=== PATIENT | female | born 1985 | race Caucasian/White ===

== ENCOUNTER 2023-08-28 17:53 | Observation (INO) | payer MEDICAID, SELFPAY ==
[2023-08-28 17:54] VITALS: BP 115/63; PULSE 86; RESP 14; TEMP 36.6; O2SAT 100; BMI 27.9
--- NOTE | 2023-08-28 18:02 | EX.ED.SAOD ---
HPI History of Present Illness Chief Complaint: Substance Abuse Detail of Chief Complaint: Requesting detox from fentanyl Informant: patient Narrative Narrative: Patient presents to the emergency department requesting detox from fentanyl. Patient states that she last used around 2:30 in the morning. Currently she is having chills and sweats. She had no vomiting. Denies any other illicit drug use. She last detox from fentanyl about 6 months ago but did not finish the program. Patient typically smokes the fentanyl and does not use IV drugs. Patient denies recent illness. [facility] Medical History (Updated 08/28/23 @ 18:29 by Anuja Barahona) ADHD Bipolar 1 disorder Hepatitis C Home Medications clonazepam 0.5 mg tablet 0.5 mg PO Q12H 08/28/23 [History Last Taken Unknown] gabapentin 400 mg capsule (Neurontin) 400 mg PO Q6H 08/28/23 [History Last Taken Unknown] Allergy/AdvReac Type Severity Reaction Status Date / Time No Known Allergies Allergy Verified 08/28/23 17:55 Family History no significant family his Surgical History no surgical history Social History (Updated 08/28/23 @ 18:08 by Anuja Barahona) household members: significant other housing: house Smoking Status: Current every day smoker tobacco type: cigarettes and e-cigarettes ROS ROS ED Review of Systems ROS Unobtainable: other Constitutional Constitutional ED: Reports chills, lethargy and sweats; Denies fever(s) or weight loss Eyes Eyes: Denies blurry vision, change in vision or diplopia ENT ENT ED: Denies rhinorrhea or sore throat Cardiovascular Cardiovascular: Denies chest pain, orthopnea or racing heartbeat Respiratory/Chest Respiratory/Chest: Denies cough, dyspnea, dyspnea on exertion, orthopnea or sputum Gastrointestinal Gastrointestinal: Denies abdominal pain, diarrhea, nausea or vomiting Genitourinary Genitourinary ED: Denies dysuria, hematuria or urinary frequency Musculoskeletal Musculoskeletal: Denies arthralgias, back pain, myalgias or neck pain Integumentary Denies abscess, Abrasions or rash Neurologic Neurologic: Denies headache(s) or weakness Psychiatric Psychiatric: Denies anxiety, depression or suicidal thoughts Endocrine Endocrinology: Denies polydipsia, polyphagia or polyuria Hematologic/Lymphatic Hematologic/Lymphatic: Denies easy bleeding, easy bruising or lymphadenopathy Allergic/Immunologic Allergic/Immunologic ED: Denies mouth swelling, tongue swelling or urticaria EXAM Physical Exam Const Vital Signs: 08/28/23 17:54 Temperature 97.9 F Temperature Source Temporal Pulse Rate 86 Respiratory Rate 14 Blood Pressure 115/63 Blood Pressure Mean 80 Pulse Ox 100 Oxygen Delivery Method Room Air Positive well nourished and well developed General Appearance ED: well developed and NAD HEENT Reports TM's clear and moist mucous membranes normocephalic and atraumatic; Negative for trauma or tenderness Tympanic Membrane ED: Yes TM's clear Eyes PERRL and EOMs intact bilaterally General Eye ED: Negative for pale conjunctiva or scleral icterus Neck no lymphadenopathy, supple and no JVD General: Negative for tenderness Chest Wall inspection of chest normal and palpation of chest normal Chest: Negative for tenderness Resp normal respiratory effort and clear to auscultation bilaterally Effort and Inspection: Negative for respiratory distress or pain with movement Auscultation: Negative for rhonchi, wheezes or diminished lung sounds Cardio regular rate, regular rhythm, S1 normal heart sound, S2 normal heart sound and no murmurs Peripheral Pulses: pulses 2+ throughout GI normal to inspection, nondistended, normoactive bowel sounds, soft to palpation, non-tender, non-distended and no masses Back/Spine no CVA tenderness and no thoracic nor lumbar tenderness Extremity normal to inspection General Extremety ED: Negative for edema General Extremity: Negative for edema Neuro oriented x3, CN's II-XII intact bilaterally, no sensory deficits noted and gait normal Sensorium / Orientation: awake, alert, oriented to person, oriented to place and oriented to time Motor Exam: strength 5/5 throughout and strength abnormal Psych mental status grossly normal Skin no rashes or lesions noted and no wounds MDM MDM MDM Narrative Medical decision making narrative: Patient presents requesting detox from fentanyl. We will send off basic labs as well as a talk screen alcohol level. Case will be discussed with hospitalist to evaluate patient for admission for detox Discharge Plan Dx/Rx/DC Orders Clinical Impression: Opiate abuse, continuous, Admitted to substance misuse detoxification center Disposition Disposition: Acute Care Hospital [facility] Discharge Date/Time: 08/28/23 21:00
--- NOTE | 2023-08-28 18:06 | HP.PCM.HOS_ITS ---
HPI - General General Date of Admission: 08/28/23 Date of Service: 08/28/23 Chief Complaint: acute opioid withdrawal HPI Narrative JOEL LEVIN, is a 38 F with a PMH as outlined who presents via the ED on 08/28/2023 for detox from fentanyl. She usually smokes fentanyl and says her last use was ~ 2:30pm on the day of admission. She complained of chills and increased sweating. She denied any other symptoms. She last went through detox several months ago at [facility]; however she says she signed out AMA at that time. She managed to stay clean for some months until she relapsed. REview of systems was otherwise negative. Vitals in the ED were BP of 115/63, FL of 86,. RR of 14 and temp of 97.9F. She was saturating at 100% on room air. CBC and BMP as well as urine tox were ordered and pending. She is being admitted to be managed for acute opioid withdrawal. [facility] Medical History (Updated 08/28/23 @ 18:29 by Anuja Barahona) ADHD Bipolar 1 disorder Hepatitis C Medical History no medical history Home Medications clonazepam 0.5 mg tablet 0.5 mg PO Q12H 08/28/23 [History Last Taken Unknown] gabapentin 400 mg capsule (Neurontin) 400 mg PO Q6H 08/28/23 [History Last Taken Unknown] Allergy/AdvReac Type Severity Reaction Status Date / Time No Known Allergies Allergy Verified 08/28/23 17:55 Family History no significant family his Surgical History no surgical history Social History (Updated 08/28/23 @ 18:08 by Anuja Barahona) household members: significant other housing: house Smoking Status: Current every day smoker tobacco type: cigarettes and e- cigarettes ROS Review of Systems ROS Unobtainable: Denies due to encephalopathy Constitutional Constitutional: Reports fatigue, malaise and weakness; Denies anorexia, chills or fever(s) Eyes Eyes: Denies change in vision ENT HEENT: Denies dysphagia or headache(s) Cardiovascular Cardiovascular: Denies chest pain, dyspnea on exertion, edema, lightheadedness, orthopnea, palpitations, rapid heart rate or syncope Respiratory/Chest Respiratory/Chest: Denies cough, productive cough, shortness of breath at rest or shortness of breath with exertion Gastrointestinal Gastrointestinal: Denies abdominal pain, constipation, diarrhea, nausea or vomiting Genitourinary Genitourinary: Denies burning urination Musculoskeletal Musculoskeletal: Denies arthralgias Neurologic Neurologic: Denies confusion, disequilibrium, dizziness, focal weakness, headache(s), numbness, seizure-like activity, seizures or syncope Psychiatric Psychiatric: Denies anxiety Endocrine Endocrinology: Denies change in body appearance Hematologic/Lymphatic Hematologic/Lymphatic: Denies anemia Vital Signs Vital Signs Vital Signs: 08/28/23 17:54 Temperature 97.9 F Temperature Source Temporal Pulse Rate 86 Respiratory Rate 14 Blood Pressure 115/63 Blood Pressure Mean 80 Pulse Ox 100 Oxygen Delivery Method Room Air Weight Weight: 168 lb 1 oz Body Mass Index (BMI) 27.9 Physical Exam Const alert, oriented x3, no apparent distress and average body habitus HEENT normocephalic, head/scalp atraumatic, hearing grossly normal bilaterally, moist oral mucous membranes and oropharynx normal Mouth: oral and palatal mucosa normal Eyes PERRL, EOMs intact bilaterally and conjunctivae normal Neck no lymphadenopathy, supple and no JVD Cardio regular rate, regular rhythm, S1 normal heart sound, S2 normal heart sound and no murmurs GI normal to inspection, nondistended, normoactive bowel sounds, soft to palpation and non-tender Extremity normal to inspection, full ROM and no clubbing, cyanosis or edema Neuro oriented x3, CN's II-XII intact bilaterally, moves all extremities and no focal motor deficits Sensorium / Orientation: awake, alert and oriented to person Coordination / Balance: [id number] test normal Motor Exam: strength 5/5 throughout Psych affect normal Results Lab / Micro Data 08/28/23 19:16 08/28/23 19:16 Assessment & Plan Assessment/Plan (1) Acute opioid withdrawal: PLAN: Plan #Acute opioid withdrawal * admit to med surg * CBC, BMP and urine tox screen pending * start on opioid withdrawal protocol with buprenorphine * adjunctive meds for symptomatic relief * monitor COWS score * DVT prophylaxis: low risk, encourage ambulation Charges/Coding Visit Charges Inpatient E&M: 25836 Init Hosp L3
[2023-08-28 18:51] VITALS: RESP 18
[2023-08-28 19:38] LABS: Absolute Lymphocyte Count 4.15 X10^3/uL (0.83-4.51); Absolute Neutrophil Count 3.3 X10^3/uL (2.0-7.7); Basophil# 0.06 X10^3/uL; Basophil% 0.7 % (0-1); Eosinophil# 0.21 X10^3/uL; Eosinophils% 2.6 % (0-5); Hematocrit 40.8 % (37-47); Hemoglobin 13.9 g/dL (12.0-15.0); Lymphocyte # 4.15 X10^3/ul (0.83-4.51); Lymphocyte % 50.7 % (19-41); Mean Corp Hgb Conc 34.1 g/dL (32-36); Mean Corpuscular Hgb 28.8 pg (27.0-32.0); Mean Corpuscular Volume 84.5 fL (81-99); Mean Platelet Vol. 10.2 fl (6.2-12.0); Monocyte# 0.45 X10^3/uL; Monocyte% 5.5 % (0-10); NRBC Flagged by Analyzer 0 % (0-5); Neutrophil # 3.28 X10^3/uL (2.7-7.7); Neutrophil % 40.1 % (47-70); Platelet Count 251 K/mm3 (150-450); RBC Distribution Width CV 12.9 % (11.6-14.6); RBC Distribution Width SD 39.8 fl (35.1-43.9); Red Blood Count 4.83 M/mm3 (4.2-5.4); White Blood Count 8.2 K/mm3 (4.4-11.0)
[2023-08-28 20:04] LABS: ALB/GLOB Ratio 0.9 RATIO (0.9-2.4); AST(SGOT) 35 U/L (15-37); Alanine Aminotransfer ALT/SGPT 48 U/L (13-56); Albumin, Serum 3.4 g/dL (3.2-5.0); Alkaline Phosphatase 89 U/L (45-117); Anion Gap 5 (5-15); BUN 16 mg/dL (7-18); BUN/Creat Ratio 19.1 RATIO (10-20); Calcium,Total 8.7 mg/dL (8.5-10.1); Chloride 106 mmol/L (98-107); Creatinine, Serum 0.84 mg/dL (0.55-1.02); EST Glomerular Filtration Rate 81 mL/min (>60); Est Glom Filt Rate - Afr Amer 98 mL/min (>60); Estimated Creatinine Clearance 82.51 ml/min; Globulin 3.7 g/dL (2.2-4.2); Glucose 99 mg/dL (74-106); Potassium 4.6 mmol/L (3.5-5.1); Protein, Total 7.1 g/dL (6.4-8.2); Sodium Level 139 mmol/L (136-145)
[2023-08-28 20:06] LABS: Amphetamine Urine VISTA NEGATIVE (<1000 ng/mL); Barbiturate Urine VISTA NEGATIVE (< 200 ng/mL); Benzodiazepine Urine VISTA NEGATIVE (< 200 ng/mL); Cocaine Urine VISTA NEGATIVE (< 300 ng/mL); Ecstacy Urine VISTA POSITIVE (< 500 ng/mL); Methadone Urine VISTA NEGATIVE (< 300 ng/mL); PCP Urine VISTA NEGATIVE (< 25 ng/mL); THC Urine VISTA POSITIVE (< 50 ng/mL); Vista UDS pH Range 5
[2023-08-28 20:06] LABS: Internal QC Validated? YES +Cl - CLEAR BKGD; Pregnancy, Serum, hCG Quali. NEGATIVE Negative
[2023-08-28 20:07] LABS: Alcohol, Blood (Medical)-Serum < 3.0 mg/dL
[2023-08-28 21:06] VITALS: BMI 27.5
[2023-08-28] MEDS: Gabapentin 400 MG Capsule PO (21:18)
[2023-08-28] MEDS: Acetaminophen 325 MG Tablet 650 MG PO (21:18)
[2023-08-28] MEDS: clonazePAM 0.5 MG Tablet PO (21:18)
[2023-08-28] MEDS: Methocarbamol 750 MG Tablet PO (21:18)
[2023-08-28 21:22] VITALS: BP 103/75; PULSE 89; RESP 18; TEMP 36.3; O2SAT 100
[2023-08-29] MEDS: Loperamide 2 MG Capsule PO (00:01)
[2023-08-29 00:10] VITALS: BP 102/57; PULSE 83; RESP 18; TEMP 36.8; O2SAT 100
--- NOTE | 2023-08-29 00:11 | NURSING ---
Pt scored 17 on COWS and educated that Subutex taper is to begin. Pt initially agreed and then notified nurse that she wants to wait a little bit to be sure she will not go through precipitous withdrawal.
[2023-08-29 06:22] VITALS: BP 94/61; PULSE 67; RESP 16; TEMP 36.6; O2SAT 95
[2023-08-29] MEDS: Dicyclomine 10 MG Capsule 20 MG PO ×3 (06:30→18:09)
[2023-08-29] MEDS: Buprenorphine HCl 2 MG TAB.SUBL SL ×2 (06:30→23:26)
[2023-08-29] MEDS: Methocarbamol 750 MG Tablet PO (06:30)
--- NOTE | 2023-08-29 07:20 | PCM.PN.HOSP ---
Subjective Subjective Still feeling sick. Objective Data Objective Data Vital Signs: Vital Signs Temp Pulse Resp BP Pulse Ox O2 Del Method 36.6 C 67 16 94/61 95 Room Air 08/29/23 06:22 08/29/23 06:22 08/29/23 06:22 08/29/23 06:22 08/29/23 06:22 08/29/23 06:22 Oxygen Delivery Method Room Air Weight: 75.07 kg Body Mass Index (BMI) 27.5 Intake & Output: Intake and Output for Last 24 Hours 08/27/23 08/28/23 08/29/23 23:59 23:59 23:59 Intake Total 200 / 200 Balance 200 / 200 Lab / Micro Data 08/28/23 19:16 08/28/23 19:16 Labs: Laboratory Results - last 24 hr 08/28/23 18:53: Urine Opiates Screen NEGATIVE, Urine Methadone Screen NEGATIVE, Ur Barbiturates Screen NEGATIVE, Ur Phencyclidine Scrn NEGATIVE, Ur Amphetamines Screen NEGATIVE, MDMA (Ecstasy) Screen POSITIVE H, U Benzodiazepines Scrn NEGATIVE, Urine Cocaine Screen NEGATIVE, U Cannabinoids Screen POSITIVE H, Ur Drug Screen Comment 08/28/23 19:16: WBC 8.2, RBC 4.83, Hgb 13.9, Hct 40.8, MCV 84.5, MCH 28.8, MCHC 34.1, RDW Std Deviation 39.8, RDW Coeff of Kierra 12.9, Plt Count 251, MPV 10.2, Immature Gran % (Auto) 0.400, Neut % (Auto) 40.1 L, Lymph % (Auto) 50.7 H, [place] % (Auto) 5.5, Eos % (Auto) 2.6, Baso % (Auto) 0.7, Absolute Neuts (auto) 3.3, Absolute Lymphs (auto) 4.15, Nucleated RBC % 0, Sodium 139, Potassium 4.6, Chloride 106, Carbon Dioxide 28.0, Anion Gap 5, BUN 16, Creatinine 0.84, Estim Creat Clear Calc 82.51, Est GFR (MDRD) Af Amer 98, Est GFR (MDRD) Non-Af 81, BUN/Creatinine Ratio 19.1, Glucose 99, Calcium 8.7, Total Bilirubin 0.20, AST 35, ALT 48, Alkaline Phosphatase 89, Total Protein 7.1, Albumin 3.4, Globulin 3.7, Albumin/Globulin Ratio 0.9, Serum , Qual NEGATIVE, Ethyl Alcohol < 3.0 Physical Exam Const alert Constitutional Narrative: shaking. appears older than stated age. Neuro Sensorium / Orientation: awake and alert Psych Psych Narrative: flat affect Assessment & Plan Assessment/Plan (1) Acute opioid withdrawal: PLAN: Acute opioid withdrawal admit to med surg CBC, BMP and urine tox screen pending start on opioid withdrawal protocol with buprenorphine adjunctive meds for symptomatic relief monitor COWS score PLAN: Plan Anxiety: pt has clonazepam on home list. She has not received a prescription since 02/17/2023. Also has gabapentin on admssion DEC. She has not received a prescription since 04/15/2023. UDS negative for BZDs. I would not continue either of these medication upon discharge. DVT prophylaxis: low risk, encourage ambulation
[2023-08-29 10:00] VITALS: BP 121/84; PULSE 95; RESP 18; TEMP 36.7; O2SAT 98
[2023-08-29] MEDS: Gabapentin 400 MG Capsule PO (10:27)
[2023-08-29] MEDS: clonazePAM 0.5 MG Tablet PO (10:27)
[2023-08-29 15:02] VITALS: BP 125/84; PULSE 79; RESP 16; TEMP 37.1; O2SAT 94
[2023-08-29 21:00] VITALS: BP 105/70; PULSE 86; RESP 18; TEMP 36.6; O2SAT 94
[2023-08-29] MEDS: hydrOXYzine PAM 25 MG Capsule 50 MG PO ×2 (23:26)
[2023-08-29] MEDS: traZODone 100 MG Tablet PO ×2 (23:26)
[2023-08-30 03:00] VITALS: BP 100/67; PULSE 72; RESP 18; TEMP 37.1; O2SAT 95
--- NOTE | 2023-08-30 07:35 | PN.HOSP_ITS ---
Reason for Visit Reason for Visit: Diagnoses Opioid use, unspecified with withdrawal (08/28/23) Objective Data Objective Data Vital Signs: Vital Signs Temp Pulse Resp BP Pulse Ox O2 Del Method 37.1 C 72 18 100/67 95 Room Air 08/30/23 03:00 08/30/23 03:00 08/30/23 03:00 08/30/23 03:00 08/30/23 03:00 08/30/23 03:00 Oxygen Delivery Method Room Air Weight: 75.07 kg Body Mass Index (BMI) 27.5 Intake & Output: Intake and Output for Last 24 Hours 08/28/23 08/29/23 08/30/23 23:59 23:59 23:59 Intake Total 200 / 200 Balance 200 / 200 Lab / Micro Data 08/28/23 19:16 08/28/23 19:16 Assessment & Plan Assessment/Plan (1) Acute opioid withdrawal: PLAN: Pt refusing buprenorphine. Addiction medicine to see. PLAN: Plan DVT prophylaxis: low risk, encourage ambulation
--- NOTE | 2023-08-30 07:35 | PCM.PN.HOSP ---
Reason for Visit Reason for Visit: Diagnoses Opioid use, unspecified with withdrawal (08/28/23) Subjective Subjective Had refused buprenorphine. Did take it today. Objective Data Objective Data Vital Signs: Vital Signs Temp Pulse Resp BP Pulse Ox O2 Del Method 37.1 C 72 18 100/67 95 Room Air 08/30/23 03:00 08/30/23 03:00 08/30/23 03:00 08/30/23 03:00 08/30/23 03:00 08/30/23 03:00 Oxygen Delivery Method Room Air Weight: 75.07 kg Body Mass Index (BMI) 27.5 Intake & Output: Intake and Output for Last 24 Hours 08/28/23 08/29/23 08/30/23 23:59 23:59 23:59 Intake Total 200 / 200 Balance 200 / 200 Lab / Micro Data 08/28/23 19:16 08/28/23 19:16 Physical Exam Const alert and no apparent distress HEENT head/scalp atraumatic and moist oral mucous membranes Psych Psych Narrative: flat affect. Assessment & Plan Assessment/Plan (1) Acute opioid withdrawal: PLAN: Pt taking buprenorphine. Addiction medicine to see. Gretchen recommended that patient work with her health care providers. PLAN: Plan DVT prophylaxis: low risk, encourage ambulation Charges/Coding Visit Charges Inpatient E&M: 35478 Subs Hosp L1
[2023-08-30] MEDS: Buprenorphine HCl 2 MG TAB.SUBL SL (08:59)
[2023-08-30] MEDS: hydrOXYzine PAM 25 MG Capsule 50 MG PO (08:59)
[2023-08-30] MEDS: Dicyclomine 10 MG Capsule 20 MG PO (08:59)
[2023-08-30] MEDS: Acetaminophen 325 MG Tablet 650 MG PO (08:59)
[2023-08-30 09:03] VITALS: BP 99/63; PULSE 75; RESP 18; TEMP 37.1; O2SAT 95
--- NOTE | 2023-08-30 11:34 | ADDICTION ---
This magazine writer met with PT to conduct ASAM, MSE, AUDIT assessments and to plan for d/c. PT A+Ox4 and participated actively. All assessments completed and placed in PT's chart. PT plans to f/u with [facility] for follow-up treatment services. PT did not indicate a need for transportation post d/c from [facility].
--- NOTE | 2023-08-30 14:43 | PCM.DC.SUM ---
Providers Date of Admission: 08/28/23 Primary Care Physician: Roslyn Sharma NP, [employer] Reason For Visit: ACUTE OPIOID WITHDRAWAL Diagnosis Discharge Diagnosis (1) Acute opioid withdrawal: Status: Acute Code(s): F11.93 - Opioid use, unspecified with withdrawal Plan: Pt taking buprenorphine. Addiction medicine to see. Jamly recommended that patient work with her health care providers. Plan DVT prophylaxis: low risk, encourage ambulation Medications at Discharge Home Medications clonazepam 0.5 mg tablet 0.5 mg PO Q12H 08/28/23 gabapentin 400 mg capsule (Neurontin) 400 mg PO Q6H 08/28/23 Hospital Course Summary of Care Provided Hospital Course: Opiate withdrawal. Patient was reluctantly taking buprenorphine. Patient had declined first dosings but did eventually start taking it given her symptoms. Patient left AGAINST MEDICAL ADVICE today. Weight / BMI Weight Weight: 75.07 kg Body Mass Index (BMI) 27.5 ABG / Lab / Microbiology Data 08/28/23 19:16 08/28/23 19:16 Meaningful Use Info Meaningful Use Diagnoses (Choose all that apply): None applicable Discharge Plan Admission Admit Date/Time: 08/28/23 18:13 Primary Reason for Your Visit: opiate withdrawal Attending Provider: Joshua Lundberg Primary Care Provider: Roslyn Sharma NP Consulting Providers: Clotilde Perrin Discharge Orders/Prescriptions Prescriptions: No Action clonazepam 0.5 mg tablet 0.5 mg PO Q12H Patient Comments: patient unsure if it is twice a day or three times a day gabapentin [Neurontin] 400 mg capsule 400 mg PO Q6H Referrals / Follow Up: Roslyn Sharma NP, [employer] [Primary Care Provider] - Disposition Disposition (needs filled in before D/C Order can be placed): Home, Self Care Charges/Coding Visit Charges Inpatient E&M: 40675 Disch Hosp
== END 2023-08-30 15:03 | disposition left against medical advice (07) | DRG 773 ==
LOC: ED 18:25 → MS3 08-29 06:57
PROVIDERS: Admitting Provider Student in an Organized Health Care Education/Training Program; Emergency Provider Emergency Medicine
DX: F11.13 Opioid abuse with withdrawal (principal); F31.9 Bipolar disorder, unspecified; F17.210 Nicotine dependence, cigarettes, uncomplicated; F17.290 Nicotine dependence, other tobacco product, uncomplicated; Z53.29 Procedure and treatment not carried out because of patient's decision for other reasons; Z79.899 Other long term (current) drug therapy; Z86.19 Personal history of other infectious and parasitic diseases
CPT/HCPCS: 36415; 80053; 80307; 82077; 84703; 85025; 99221; 99283; 99406; G0378